=== PATIENT | female | born 1945 | race Caucasian/White ===

== ENCOUNTER 2016-11-15 08:40 | Emergency (ER) | payer OTHER, BC ==
[2016-11-15] MEDS ORDERED: LET GEL TOPICAL 1 EA SYR TP ONE (09:02)
--- NOTE | 2016-11-15 09:15 | EDPHY ---
H & P Time Seen by Provider: 11/15/16 09:11 HPI/ROS: CHIEF COMPLAINT: Left elbow pain, left rib pain HISTORY OF PRESENT ILLNESS: Patient is a 71-year-old female who presents emergency department after falling last evening. Patient states she tripped over the wheel on her ottoman. She struck her left elbow on the fireplace. She now has mild left elbow pain. She has full range of motion but with mild discomfort. The patient also struck the left side of her chest. It is mildly worse with movement. She has no shortness of breath or chest pain. She did not strike her head or lose consciousness. No headache or neck pain. No focal neurologic deficits. REVIEW OF SYSTEMS: My complete review of systems is negative except as mentioned in the HPI. Past Medical/Surgical History: Includes hypertension Past surgical history: Includes appendectomy, eye surgery, hysterectomy Social history: The patient is . She does not smoke. Physical Exam: Vitals noted GENERAL: Well-appearing, in no acute distress, alert. HEAD: No evidence of trauma. EYES: PERRLA, EOMI, normal to inspection. ENT: Airway intact, no dental or oral injury, no malocclusion, no hemotympanum , normal external examination. NECK: The trachea is midline. There is no crepitus. The C-spine is nontender. NEXUS criteria is negative (no midline tenderness, no distracting injury, no altered mental status, no recent alcohol use, no focal neurologic deficit). RESPIRATORY: Clear to auscultation bilaterally, no rales, rhonchi or wheezing. There is no crepitus or palpable rib fractures. CVS: Regular rate and rhythm, no rubs, murmurs, or gallops. Chest: Patient has an abrasion to her left lateral chest. There is no crepitus. Paradoxical movement. ABDOMEN: Soft, nontender, nondistended, normal bowel sounds, no bruising or abrasions. Pelvis: Stable. No tenderness palpation. Hips full range of motion. BACK: Normal to inspection, no spinal tenderness, no spinal step off, no notable bruising or abrasions. SKIN: Normal color, warm, dry. No pallor or diaphoresis. EXTREMITIES: Right upper extremity: Atraumatic. No visible signs of trauma. No tenderness palpation. Neurovascular intact distally. Left upper extremity: Patient is a 2 cm laceration over her olecranon. There is no visible foreign body. No palpable deformity or step-off. Patient has mild radial head tenderness to palpation on the left. Neurovascular intact distally. Right lower extremity: Atraumatic. No visible signs of trauma. No tenderness palpation. Neurovascular intact distally. Left lower extremity: Atraumatic. No visible signs of trauma. No tenderness palpation. Neurovascular intact distally. NEURO/PSYCH: Alert and oriented x 3, GCS 15, normal mood and affect, normal motor sensory exam. Constitutional: Initial Vital Signs Temperature (C) 36.7 C 11/15/16 09:11 Heart Rate 95 11/15/16 09:11 Respiratory Rate 16 11/15/16 09:11 Blood Pressure 185/98 H 11/15/16 09:11 O2 Sat (%) 95 11/15/16 09:11 O2 Delivery Mode Room Air Allergies/Adverse Reactions: No Known Allergies Allergy (Verified 11/15/16 09:14) Home Medications: Medication Instructions Recorded Bumetanide [Bumex (RX)] 1 mg PO 05/14/13 Losartan Potassium [Cozaar] 100 mg PO 05/14/13 Medical Decision Making - Diagnostics Imaging Results: Imaging Impressions Chest X-Ray 11/15/16 09:18 Impression: 1. Suspect retrocardiac hiatal hernia. This could be confirmed with an esophagram. 2. There is no rib fracture appreciated (further imaging with dedicated rib films could be considered, as clinically directed). 3. There is no pleural effusion or pneumothorax. Findings were discussed with WALLACE HENDRIX MD at 9:54, on 11/15/2016. Elbow X-Ray 11/15/16 09:18 Impression: There is no acute osseous abnormality identified. Findings were discussed with WALLACE HENDRIX MD at 9:54 am, on 11/15/2016. Procedures: Procedure: Laceration repair. Verbal consent was obtained from the patient. The 2 cm laceration on the left elbow was anesthetized in the usual fashion. The wound was irrigated, draped and explored to its base with a gloved finger. There were no deep structures involved. No tendon injury was identified. The wound was repaired with 4 0 nylon. The wound repair was simple. The procedure was performed by myself. ED Course/Re-evaluation: In the emergency department I discussed possible etiologies with the patient and . I answered all her questions. She consented to an x-ray of her left elbow and left chest. Left elbow x-ray: Please refer the dictated report by the radiologist. Chest x-ray: Please refer the dictated report by the radiologist. I discussed the results with the patient. I answered all her questions. Patient had LET applied to her left elbow laceration. This was cleaned. Patient's wound was repaired. I discussed the risk of infection. The patient came to the emergency department 9 after the injury. I discussed increased risk of infection. However, the patient did have a gaping wound and felt heal better with sutures. Patient was given warnings prior to leaving. She will return with worsening symptoms. Differential Diagnosis: My differential includes but is not limited to elbow fracture, contusion, rib contusion, rib fracture, pneumothorax, hemothorax, laceration, foreign body Departure - Departure Disposition: Home, Routine, Self-Care Clinical Impression: Laceration Chest wall contusion Qualifiers: Encounter type: initial encounter Laterality: left Qualified Code(s): S20.212A - Contusion of left front wall of thorax, initial encounter Condition: Good Instructions: Laceration (ED), Contusion in Adults (ED) Additional Instructions: You need to have your sutures removed in 9 days. Return if you have increased redness, warmth, discharge, pain, fever or any other concerns. Your x-rays did not show any broken bones. Referrals: NONE *PRIMARY CARE P,. [Primary Care Provider] - As per Instructions Mariela Goodman MD [Medical Doctor] - 5-7 days, if not improved
[2016-11-15 09:18] VITALS: RESP 16; TEMP 98.1
[2016-11-15 10:27] VITALS: BP 152/84; PULSE 85; O2SAT 92
== END 2016-11-15 10:15 | disposition home or self-care (01) ==
LOC: CED 08:40
PROC: 0HQEXZZ Repair Left Lower Arm Skin, External Approach (ICD-10-PCS; principal; 2016-11-15)
DX: S51.012A Laceration without foreign body of left elbow, initial encounter (principal); S20.212A Contusion of left front wall of thorax, initial encounter; I10 Essential (primary) hypertension; W01.198A Fall on same level from slipping, tripping and stumbling with subsequent striking against other object, initial encounter; Y92.009 Unspecified place in unspecified non-institutional (private) residence as the place of occurrence of the external cause
CPT/HCPCS: 71020-PO; 73080-PO

== ENCOUNTER → 2017-11-14 | Outpatient (CLI) | payer OTHER, BC | LOC: FIMAGING 10:28 | PROVIDERS: ATTEND Internal Medicine | DX: Z13.820 Encounter for screening for osteoporosis (principal); M85.89 Other specified disorders of bone density and structure, multiple sites; Z78.0 Asymptomatic menopausal state ==